=== PATIENT | female | born 1950 | race Caucasian/White ===

== ENCOUNTER → 2020-09-01 | Outpatient (CLI) | payer MEDICARE, OTHER ==
--- NOTE | 2020-09-01 11:15 | RAD ---
STUDY: US Abdomen Complete INDICATION: Abdominal pain. COMPARISON: None. TECHNIQUE: Real-time grayscale and color Doppler sonographic evaluation of the abdomen. Findings: Pancreas: The tail of the pancreas is poorly visualized. The adequately assessed pancreas is unremark able. Liver: Generalized increased hepatic parenchymal echogenicity. Measures within normal limits for size at 13.3 cm longitudinal. Aorta/IVC/Main Portal Vein: Patent main portal vein with hepatopedal flow. Unremarkable IVC where vis ualized. Nonaneurysmal aorta. Gall Bladder: Normal gallbladder wall thickness at 0.2 cm. No stones or sludge visualized. Common Bile Duct: Normal transverse dimension at 0.2 cm. Right Kidney: Measures 8.8 cm in length. No complex cyst or mass. No hydronephrosis. Left Kidney: Measures 9.8 cm in length. No complex cyst or mass. No hydronephrosis. Spleen: Appears to be within normal limits for size and echotexture noting that a portion of the sple en was not well evaluated due to bowel gas. Miscellaneous: None. Impression: 1. No acute sonographic abnormality seen throughout the abdomen. 2. Increased hepatic parenchymal echogenicity most typical of hepatic steatosis. The liver remains w ithin normal limits for size. Electronically signed by: RASHAWN BIRD MD (09/01/2020 11:12 AM) [id number]
== END ==
LOC: US 10:13
PROVIDERS: ATTEND Internal Medicine Gastroenterology
DX: K76.0 Fatty (change of) liver, not elsewhere classified (principal); R10.9 Unspecified abdominal pain
CPT/HCPCS: 76700